=== PATIENT | male | born 1965 | race Caucasian/White ===

== ENCOUNTER 2020-08-27 16:14 | Emergency (ER) | payer MEDICAID, SELFPAY ==
[~2020-08-27] VITALS: Ht 177.8 cm; Wt 80.3 kg
[2020-08-27 16:17] VITALS: BP 181/89
[2020-08-27] MEDS ORDERED: DIPH,PERTUSS(ACELL),TET VAC/PF 0.5 ML IM-VACC ONE ×2 (17:36→18:00)
[2020-08-27] MEDS ORDERED: LIDOCAINE-MPF 1%, 5ML ONE (17:36)
[2020-08-27] MEDS ORDERED: LIDOCAINE-MPF 1%, 5ML INFIL ONE (18:00)
--- NOTE | 2020-08-27 18:12 | NUR ---
PROVIDER AT BEDSIDE FOR FB EXTRACTION. LIDO WAS NOT USED.
== END 2020-08-27 18:41 | disposition home or self-care (01) ==
LOC: ED 18:01
DX: S61.242A Puncture wound with foreign body of right middle finger without damage to nail, initial encounter (principal); X58.XXXA Exposure to other specified factors, initial encounter; Y93.89 Activity, other specified; Y92.89 Other specified places as the place of occurrence of the external cause; Y99.8 Other external cause status
CPT/HCPCS: 90471; 90715; 99284